=== PATIENT | female | born 1980 | race Caucasian/White ===

== ENCOUNTER 2022-02-11 13:00 | Inpatient (IN) | payer OTHER ==
[~2022-02-11 13:00] MED LIST: COLACE 100MG C100 MG PO; IBUPROFEN600 MG PO; LORTAB 5-325 M1 EACH PO; PRENATABS FA T1 EACH PO
[2022-02-11 13:33] LABS: HEMOGLOBIN 13.4 gm/dl (12.3-15.3); RED BLOOD COUNT 4.4 M/UL (4.00-5.10)
[2022-02-11] MEDS ORDERED: COLACE 100MG C100 MG PO (15:02)
[2022-02-11] MEDS ORDERED: HYDROCODON-ACE1 EAC2 PO (15:02)
[2022-02-11] MEDS ORDERED: IBUPROFEN800 MG PO (15:02)
[2022-02-12 05:55] LABS: HEMOGLOBIN 11.2 gm/dl (12.3-15.3)
== END 2022-02-13 12:47 | disposition home or self-care (01) | DRG 788 ==
LOC: GENOP 13:00 → OB 13:12
PROVIDERS: Obstetrics & Gynecology; ADMIT Obstetrics & Gynecology
PROC: 3E0234Z Introduction of Serum, Toxoid and Vaccine into Muscle, Percutaneous Approach (ICD-10-PCS; 2022-02-11)
PROC: 10D00Z1 Extraction of Products of Conception, Low, Open Approach (ICD-10-PCS; principal; 2022-02-11 15:21)
DX: O41.03X0 Oligohydramnios, third trimester, not applicable or unspecified (principal); O34.211 Maternal care for low transverse scar from previous cesarean delivery; O99.62 Diseases of the digestive system complicating childbirth; K27.9 Peptic ulcer, site unspecified, unspecified as acute or chronic, without hemorrhage or perforation; Z37.0 Single live birth; Z3A.37 37 weeks gestation of pregnancy; Z28.310 Unvaccinated for COVID-19; Z82.49 Family history of ischemic heart disease and other diseases of the circulatory system; Z88.8 Allergy status to other drugs, medicaments and biological substances; Z23 Encounter for immunization
CPT/HCPCS: 36415; 81001; 82800; 85014; 85018; 85025; 90715; C9113; J0690; J1170; J2370; J2405; J2590